=== PATIENT | female | born 1990 | race Caucasian/White ===

== ENCOUNTER 2020-10-05 08:05 | Inpatient (IN) ==
[2020-10-05] MEDS ORDERED: OXYTOCIN 30 UNITS/500 ML BAG IV PRN (08:31)
[2020-10-05 09:10] LABS: Hematocrit (blood only) 32.8 % (37-47); Hemoglobin 11.1 g/dL (12.0-16.0); Mean Corpuscular Hemoglobin 28.8 pg (25-34); Mean Corpuscular Hgb Conc 33.8 g/dL (32-36); Mean Corpuscular Volume 85.2 fL (80-100); Mean Platelet Volume 9.2 fL (7.4-10.4); Platelet Count 219 K/uL (130-400); RDW Coefficient of Variation 12.8 % (11.5-14.5); RDW Standard Deviation 39.8 fL (36.4-46.3); Red Blood Count 3.85 M/uL (4.2-5.4)
--- NOTE | 2020-10-05 09:12 | History & Physical Report ---
Date of Service October 05, 2020 Assessment & Plan (1) with 41 completed weeks gestation: (2) Encounter for induction of labor: Plan: admit for induction. discussed options--arom only, arom+pit same time, pit then arom when in good contraction pattern. She really wants an epidural, her last labor so would like to get that first then will be good with arom and pit concurrently. fetus category one. Spoke with [facility] and confirmed that she is on subutex 8 mg 1.5 tabs SL daily, confirmed it can be taken in 4 divided doses. She has taken 3mg this am. Will clear with anesthesia. Admission and Anticipated Discharge Date Admission Date: October 05, 2020 History of Present Illness Chief Complaint: induction Primary Care Provider: Jamar Zapata DO Patient is a 30yowf with iup at 41 weeks who presents for postdates induction. Patient was a noelle from [place]. She left that practice at about 20 weeks but did not present to us until 35 weeks. She has a hx of opiod abuse and is currently on subutex. She takes 12 mg daily but divides this into several small doses. At first ob had +urine tox for ativan/xanax but no scripts for those meds on PDMP. She had a neg tox 09/20. complicated by poor care. Was unable to come to the office yesterday because of transportation issues. Notes a rare contractions. Some pressure and vaginal itching. no vb. +fm. Allergies Allergy/AdvReac Type Severity Reaction Status Date / Time No Known Allergies Allergy Verified 09/28/20 14:20 Home Medications Medication Instructions Recorded Confirmed Type buprenorphine HCl 8 mg sublingual 12 mg SUBLINGUAL DAILY tab 08/25/20 10/05/20 History tablet pediatric multivitamin no.76 2 tab PO DAILY tab 08/25/20 10/05/20 History (Flintstones Complete) Patient History Medical History ADHD Anxiety Asthma [facility]. Surgical History No pertinent past surgical history Family History Grandmother Bjhzy-9-slygwplqyaq deficiency Depression Lung disease Mother Anxiety Hypertension Kidney stones Grandfather Heart disease Gallbladder disease Hypertension Other Diabetes Denies family history of Ovarian cancer Prostate cancer Myocardial infarction Breast cancer Colorectal cancer Social History Smoking Status: Current every day smoker packs per day: 0.25; Cigarettes Per Day: 10; Second Hand Exposure: Yes; Do You Dip or Chew Tobacco: No; Hx Alcohol Use: No Hx Substance Use: No Preferred Language: Vietnamese Communication Ability: Effective Visual Impairment: No Limitations Hearing Ability: Normal 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 Beliefs That Will Affect Care: None marital status: marital status details: Duncan(29) [phone] Current Living Situation: Spouse Current Living Situation Comment: lives with spouse and 2 kids current occupational status: employed current occupation: [employer] Other Information That Helps Us Care for You: No Feels Safe at Home: Yes Safety Concerns: Feels Safe At This Time caffeine: Yes Dental Care, Regularly: Yes Physical Activity Frequency: Does not Exercise Seatbelt Use: always Sunscreen Use: Yes Assistive Devices: None OB History g1--2012, sab g2--02/15, 39 weeks., , 7# g3--12/19--39 weeks, , 6#14oz [employer] History noncontributory Review of Systems All systems reviewed & are unremarkable except as noted in HPI & below Physical Exam Constitutional: WD/WN, vitals as above Gastrointestinal (Abdomen): soft, gravid, nt Psychiatric: A+Ox3, euthymic affect Genitourinary: cx--3/50/-2/soft/mid toco--intermittent contraction efm--130s with mod variability, accels to 150s, no decels Results & Data ([facility]) Vital Signs (Past 12 Hours) Vital Signs Temp Pulse Resp BP 10/05/20 08:30 36.6 C 20 10/05/20 08:15 99 H 112/66 Code Status & VTE Plan VTE Prophylaxis Plan VTE Prophylaxis will be ordered: No Coding Level of Care Code None Diagnoses with 41 completed weeks gestation Z3A.41 Encounter for induction of labor Z34.90
[2020-10-05] MEDS: LACTATED RINGER'S 1,000 ML IV PRN ×3 (09:25→16:58)
[2020-10-05] MEDS ORDERED: fentaNYL citrate 100 MCG/2 ML VIAL ONE (09:53)
[2020-10-05] MEDS ORDERED: SODIUM CHLORIDE 0.9% INJ 10 ML VIAL ONE (09:53)
[2020-10-05] MEDS ORDERED: BUPIVACAINE 0.25% 30 ML VIAL ONE (09:53)
[2020-10-05] MEDS ORDERED: ePHEDrine sulfate 50 MG/ML AMP ONE (09:53)
[2020-10-05] MEDS ORDERED: fentaNYL 2MCG/ML ROPIVACAINE 1.25MG/ML 100 ML BAG EPI ONE (09:54)
[2020-10-05] MEDS: OXYTOCIN 30 UNITS/500 ML BAG IV PRN ×2 (10:18→19:31)
[2020-10-05 11:47] LABS: Amphetamines+Metham, Urine Neg (Neg); Barbiturates, Urine Neg (Neg); Benzodiazepine, Urine Neg (Neg); Cocaine, Urine Neg (Neg); MDMA (Ecstacy), Urine Neg (Neg); Methadone, Urine Neg (Neg); Opiate, Urine Neg (Neg); Phencyclidine, Urine Neg (Neg)
--- NOTE | 2020-10-05 11:50 | Anesthesiology Consultation ---
Date of Service October 05, 2020 Assessment & Plan Chart Review Chart Review: Acceptable Risk for Labor Epidural Consults Requested none History Height/Weight Height: 5 ft 1 in Weight: 69.853 kg Allergies Allergy/AdvReac Type Severity Reaction Status Date / Time No Known Allergies Allergy Verified 09/28/20 14:20 Medications Home Medications Medication Instructions Recorded Confirmed Last Taken buprenorphine HCl 8 mg sublingual 12 mg SUBLINGUAL DAILY tab 08/25/20 10/05/20 10/05/20 tablet pediatric multivitamin no.76 2 tab PO DAILY tab 08/25/20 10/05/20 10/05/20 (Flintstones Complete) Active Medications Generic Name Dose Route Start Last Admin Trade Name Freq PRN Reason Stop Dose Admin Oxytocin 30 units in 500 mls @ 2 mls/hr 10/05/20 08:32 10/05/20 10:18 Pitocin IV 10/07/20 08:31 0.12 units/hr .Q24H PRN 2 mls/hr Labor Induction/Augmentation Administration Protocol 0.12 UNITS/HR Lactated Ringer's 1,000 mls @ 125 mls/hr 10/05/20 08:31 10/05/20 10:20 Lr IV 10/07/20 08:30 125 mls/hr .Q8H PRN Administration L&D Protocol Protocol Past Medical History Medical History ADHD Anxiety Asthma Hx of opioid abuse on subutex, [facility]. been clean for 2 1/2 years. Past Family History Family History Grandmother Xdjeh-9-rcubqzlkxgt deficiency Depression Lung disease Mother Anxiety Hypertension Kidney stones Grandfather Heart disease Gallbladder disease Hypertension Other Diabetes Denies family history of Ovarian cancer Prostate cancer Myocardial infarction Breast cancer Colorectal cancer Past Surgical History Surgical History No pertinent past surgical history Social History Smoking Status: Current every day smoker tobacco type: cigarettes Smoking cigarettes per day: 10 Do You Dip or Chew Tobacco: No Hx Alcohol Use: No Hx Substance Use: No substance use type: does not use Physical Exam Vital Signs Last Vital Signs Temp 36.6 C 10/05/20 08:30 Pulse 82 10/05/20 11:47 Resp 20 10/05/20 11:00 BP 126/66 10/05/20 11:47 Pulse Ox 98 10/05/20 11:45 Testing Laboratory Results 10/05/20 08:59
[2020-10-05] MEDS ORDERED: diphenhydrAMINE 50 MG/ML VIAL IV PRN (11:54)
[2020-10-05] MEDS ORDERED: ePHEDrine sulfate 50 MG/ML AMP IV PRN (11:54)
[2020-10-05] MEDS ORDERED: NALOXONE HCL 1 MG in SODIUM CHLORIDE 0.9% 1000ML 1,000 ML IV PRN (11:54)
[2020-10-05] MEDS ORDERED: fentaNYL 2MCG/ML ROPIVACAINE 1.25MG/ML 100 ML BAG EPI PRN (11:54)
[2020-10-05] MEDS ORDERED: NALBUPHINE HCL INJ 10 MG/ML AMP IV PRN (11:54)
[2020-10-05] MEDS ORDERED: NALOXONE HCL 0.4 MG/1 ML VIAL/CARP IV PRN (11:54)
--- NOTE | 2020-10-05 13:00 | Labor Progress Brief Note ---
Date of Service October 05, 2020 Subjective comfortable with epidural Assessment & Plan (1) Encounter for induction of labor: Plan: continue current management. fetus category one. anticipate Admission and Anticipated Discharge Date Admission Date: October 05, 2020 Physical Exam Physical Exam: cx--//-2 arom--clear toco--q 4-6 weeks efm--110s with mod variability, small accels, no decels Results & Data ([facility]) Vital Signs (Past 12 Hours) Vital Signs Temp Pulse Resp BP Pulse Ox 10/05/20 12:55 102 H 98 10/05/20 12:54 76 112/67 10/05/20 12:50 73 98 10/05/20 12:49 69 111/66 10/05/20 12:45 77 97 10/05/20 12:44 75 116/65 10/05/20 12:40 81 98 10/05/20 12:39 70 113/64 10/05/20 12:35 75 99 10/05/20 12:34 86 115/65 10/05/20 12:30 72 98 10/05/20 12:29 75 122/70 10/05/20 12:25 70 99 10/05/20 12:24 90 123/78 10/05/20 12:20 88 122/66 98 10/05/20 12:15 87 97 10/05/20 12:13 78 115/67 10/05/20 12:10 105 H 105/60 98 10/05/20 12:05 69 98 10/05/20 12:04 80 123/68 10/05/20 12:00 36.6 C 87 20 122/66 98 10/05/20 11:55 93 H 98 10/05/20 11:53 91 H 112/68 10/05/20 11:51 76 107/64 10/05/20 11:50 75 99 10/05/20 11:49 75 124/70 10/05/20 11:47 82 126/66 10/05/20 11:45 84 122/62 98 10/05/20 11:43 89 131/67 10/05/20 11:41 91 H 124/65 10/05/20 11:40 86 98 10/05/20 11:39 82 121/65 10/05/20 11:37 82 118/67 10/05/20 11:35 99 H 121/65 98 10/05/20 11:33 86 118/63 10/05/20 11:31 96 H 125/70 10/05/20 11:30 88 98 10/05/20 11:29 90 119/72 10/05/20 11:27 94 H 114/68 10/05/20 11:25 89 126/81 97 10/05/20 11:23 86 125/83 10/05/20 11:21 84 120/78 10/05/20 11:20 79 100 10/05/20 11:16 79 118/74 10/05/20 11:15 90 99 10/05/20 11:06 80 125/81 10/05/20 11:00 20 10/05/20 10:46 72 112/70 10/05/20 10:30 18 10/05/20 10:16 78 113/67 10/05/20 10:00 18 10/05/20 09:35 18 10/05/20 08:30 36.6 C 20 10/05/20 08:15 99 H 112/66 Coding Level of Care Code None Diagnoses Encounter for induction of labor Z34.90
[2020-10-05] MEDS: CALCIUM CARBONATE 500 MG CHEWABLE TAB PO PRN ×2 (13:32→17:21)
--- NOTE | 2020-10-05 17:14 | Labor Progress Brief Note ---
Date of Service October 05, 2020 Subjective comfortable with epidural Assessment & Plan (1) Encounter for induction of labor: Plan: continue current management. fetus category one. anticipate Admission and Anticipated Discharge Date Admission Date: October 05, 2020 Physical Exam Physical Exam: cx--/-2 toco--q 2-3 efm--120s with mod variability, small accels, no decels Constitutional: WD/WN, vitals as above Psychiatric: A+Ox3, euthymic affect Results & Data ([facility]) Vital Signs (Past 12 Hours) Vital Signs Temp Pulse Resp BP Pulse Ox 10/05/20 17:10 79 99 10/05/20 17:09 77 103/60 10/05/20 17:05 88 98 10/05/20 17:00 72 18 98 10/05/20 16:59 72 107/53 L 10/05/20 16:55 83 98 10/05/20 16:50 111 H 98 10/05/20 16:49 93 H 107/59 L 10/05/20 16:45 79 96 10/05/20 16:40 71 97 10/05/20 16:39 81 106/58 L 10/05/20 16:35 71 95 10/05/20 16:30 81 18 95 10/05/20 16:29 74 105/55 L 10/05/20 16:25 79 95 10/05/20 16:20 76 96 10/05/20 16:19 77 108/59 L 10/05/20 16:15 79 97 10/05/20 16:10 76 97 10/05/20 16:09 75 111/61 10/05/20 16:05 93 H 96 10/05/20 16:00 74 18 96 10/05/20 15:59 84 104/59 L 10/05/20 15:55 75 96 10/05/20 15:50 80 97 10/05/20 15:49 69 108/59 L 10/05/20 15:45 75 97 10/05/20 15:40 77 97 10/05/20 15:39 79 108/62 10/05/20 15:35 77 97 10/05/20 15:30 93 H 18 97 10/05/20 15:29 75 103/58 L 10/05/20 15:25 72 96 10/05/20 15:20 76 104/58 L 96 10/05/20 15:15 87 98 10/05/20 15:10 79 114/55 L 97 10/05/20 15:05 36.7 C 75 98 10/05/20 15:00 77 98 10/05/20 14:59 68 111/59 L 10/05/20 14:55 76 96 10/05/20 14:50 66 97 10/05/20 14:49 68 106/56 L 10/05/20 14:45 74 97 10/05/20 14:40 81 97 10/05/20 14:35 71 96 10/05/20 14:30 36.7 C 80 20 97 10/05/20 14:29 74 105/60 10/05/20 14:25 81 96 10/05/20 14:20 67 108/58 L 97 10/05/20 14:15 68 96 10/05/20 14:10 68 97 10/05/20 14:09 75 107/55 L 10/05/20 14:05 68 96 10/05/20 14:00 67 103/57 L 98 10/05/20 13:55 74 97 10/05/20 13:50 69 97 10/05/20 13:49 72 108/60 10/05/20 13:45 70 96 10/05/20 13:40 71 97 10/05/20 13:39 73 110/64 10/05/20 13:35 68 98 10/05/20 13:30 71 20 116/64 97 10/05/20 13:25 75 98 10/05/20 13:20 77 98 10/05/20 13:19 77 114/68 10/05/20 13:15 74 98 10/05/20 13:10 83 99 10/05/20 13:09 75 116/66 10/05/20 13:05 77 99 10/05/20 13:00 78 18 99 10/05/20 12:55 102 H 98 10/05/20 12:54 76 112/67 10/05/20 12:50 73 98 10/05/20 12:49 69 111/66 10/05/20 12:45 77 97 10/05/20 12:44 75 116/65 10/05/20 12:40 81 98 10/05/20 12:39 70 113/64 08/03/21 12:35 75 99 10/05/20 12:34 86 115/65 10/05/20 12:30 72 18 98 10/05/20 12:29 75 122/70 10/05/20 12:25 70 99 10/05/20 12:24 90 123/78 10/05/20 12:20 88 122/66 98 10/05/20 12:15 87 97 10/05/20 12:13 78 115/67 10/05/20 12:10 105 H 105/60 98 10/05/20 12:05 69 98 10/05/20 12:04 80 123/68 10/05/20 12:00 36.6 C 87 20 122/66 98 10/05/20 11:55 93 H 98 10/05/20 11:53 91 H 112/68 10/05/20 11:51 76 107/64 10/05/20 11:50 75 99 10/05/20 11:49 75 124/70 10/05/20 11:47 82 126/66 10/05/20 11:45 84 122/62 98 10/05/20 11:43 89 131/67 10/05/20 11:41 91 H 124/65 10/05/20 11:40 86 98 10/05/20 11:39 82 121/65 10/05/20 11:37 82 118/67 10/05/20 11:35 99 H 121/65 98 10/05/20 11:33 86 118/63 10/05/20 11:31 96 H 125/70 10/05/20 11:30 88 98 10/05/20 11:29 90 119/72 10/05/20 11:27 94 H 114/68 10/05/20 11:25 89 126/81 97 10/05/20 11:23 86 125/83 10/05/20 11:21 84 120/78 10/05/20 11:20 79 100 10/05/20 11:16 79 118/74 10/05/20 11:15 90 99 10/05/20 11:06 80 125/81 10/05/20 11:00 20 10/05/20 10:46 72 112/70 10/05/20 10:30 18 10/05/20 10:16 78 113/67 10/05/20 10:00 18 10/05/20 09:35 18 10/05/20 08:30 36.6 C 20 10/05/20 08:15 99 H 112/66 Coding Level of Care Code None Diagnoses Encounter for induction of labor Z34.90
[2020-10-05] MEDS ORDERED: ERYTHROMYCIN OP OINT 1 GM PKT ONE (19:02)
[2020-10-05] MEDS ORDERED: ACETAMINOPHEN 325 MG TAB PO PRN (19:08)
[2020-10-05] MEDS ORDERED: IBUPROFEN 600 MG TAB PO PRN (19:08)
--- NOTE | 2020-10-05 19:12 | Delivery Summary ---
Vaginal Delivery Summary Date of Service October 05, 2020 Pre-operative Diagnosis: at 41 weeks drug maintenance with subutex Post-operative Diagnosis: same Procedure: pitocin induction epidural arom right labial laceration and repair EBL: 300cc Anesthesia: epidural Procedure: The patient presented for postdates induction. Underwent pitocin induction, epidural and arom for clear fluid. The patient pushed for one contractions to deliver a viable female in concepcion position. The nose and mouth were bulb suctioned on the perineum and the rest of the was then delivered without difficulty. The baby was vigorous. The nose and mouth were again bulb suctioned and the infant was placed in the maternal abdomen for drying and attention. Cord was clamped and cut at one minute of life. Cord blood and segment obtained. Placenta delivered spontaneous, intact with a three vessel cord. Cervix/sulci/rectum were intact. A small right labial degree laceration was repaired in the normal standard fashion. Hemostasis obtained with dilute pitocin and fundal massage. Apgars were 9/10. Mother and baby doing well at the end of the delivery. Vaginal Delivery Summary and 1st Degree LAC [facility] [place] Vaginal Delivery Charge Vaginal Delivery Codes: 47397 global code for the antepartum, delivery, and post- Delivery Type Details: and 1st Degree LAC
[2020-10-05] MEDS ORDERED: buprenorphine HCL 2 MG SUBL SL STA (19:28)
[2020-10-05] MEDS ORDERED: bisacodyL 10 MG SUPP PR PRN (19:29)
[2020-10-05] MEDS ORDERED: SUPERCREAM 0.870% 15 GM JAR EXT PRN (19:29)
[2020-10-05] MEDS ORDERED: HYDROCORTISONE ACETATE 25 MG SUPP PR PRN (19:29)
[2020-10-05] MEDS ORDERED: BENZOCAINE 20% AER SPR 82.5 GM CAN EXT PRN (19:29)
--- NOTE | 2020-10-05 19:51 | Anesthesia Procedure Note ---
Date of Service October 05, 2020 Anesthesia Post Epidural Note Vital Signs Vital Signs: Temp Pulse Resp BP Pulse Ox 36.7 C 86 18 116/71 97 10/05/20 17:10 10/05/20 19:38 10/05/20 19:23 10/05/20 19:38 10/05/20 19:10 Pain Intensity Bilateral Lower Abdomen: Pain Intensity: 2 Notes Mental Status: alert / awake / arousable Nausea / Vomiting: adequately controlled Pain: adequately controlled Airway Patency, RR, SpO2: stable & adequate BP & HR: stable & adequate Hydration State: stable & adequate Neuraxial Anesthesia: was administered and sensory block is resolving Anesthetic Complications: no major complications apparent and Pt Satisfied with anesthetic care Epidural: Removed without complications and With tip intact
[2020-10-05] MEDS: buprenorphine HCL 2 MG SUBL SL SCH (22:20)
[2020-10-05] MEDS: DOCUSATE SODIUM 100 MG CAP PO SCH (22:21)
[2020-10-05] MEDS ORDERED: buprenorphine HCL 2 MG SUBL SL ONE (22:42)
--- NOTE | 2020-10-06 06:50 | Obstetrical Progress Note ---
Date of Service <Chrissy Aguayo DO - Last Filed: 10/06/20 07:05> October 06, 2020 Assessment & Plan <Chrissy Aguayo DO - Last Filed: 10/06/20 07:05> (1) Encounter for care and examination after delivery: 30 yo post op day1 from [facility], doing well. -Continue routine post care. -vital signs reviewed and WNL (Tmax 36.7) -Blood Type O+, GBS- -Encourage ambulation, monitor and control pain with Motrin, Percocet PRN, resume regular diet, monitor lochia -encourage breast feeding -hemoglobin 11.1 (8/3) -social services director consulted, mother understands baby will be monitored for abstinence syndrome Day #:: 1 <Kelley Hyman MD, FACOG - Last Filed: 10/06/20 07:50> (1) Encounter for care and examination after delivery: Subjective <Chrissy Aguayo DO - Last Filed: 10/06/20 07:05> Ambulation: ambulating normally Voiding: no voiding problems Passing Gas:: Yes (no stool yet) Diet Tolerance:: regular diet Lochia:: Moderate Feeding Type:: breast feeding Current Pain Level(1-10): 2 (well controlled on medication) Review of Systems Denies fever, chills, sweats Denies shortness of breath, difficulty breathing, chest pain, palpitations, chest pressure. Denies breast pain. Denies dysuria. Denies headache or changes in vision. Physical Exam <DO Juice Chavez Last Filed: 10/06/20 07:05> General: Alert, oriented. No acute distress. Cardiac: Regular rate and rhythm, no murmurs/rubs/gallops. Respiratory: Clear to auscultation bilaterally a/p, no wheezes/rales/rhonchi. No increased work of breathing. Symmetrical chest rise. No respiratory distress. Abdomen: Soft, nontender, nondistended. Bowel sounds present. Uterus: Uterine fundus firm, palpable at umbilicus. Lower Extremities: No lower extremity edema or swelling. No deep calf pain. Alfred's negative bilaterally.. Results & Data ([facility]) <Chrissy Aguayo DO - Last Filed: 10/06/20 07:05> Vital Signs (Past 12 Hours) Vital Signs Temp Pulse Pulse Resp BP BP Pulse Ox 10/06/20 03:45 36.7 C 73 16 106/70 98 10/05/20 23:06 36.9 C 71 16 108/64 96 10/05/20 22:16 36.8 C 78 18 110/69 98 10/05/20 21:08 90 18 124/63 10/05/20 20:53 78 133/70 10/05/20 20:39 76 18 126/71 10/05/20 20:24 81 135/72 10/05/20 20:09 86 18 93/72 L 10/05/20 20:03 94 H 130/70 10/05/20 19:53 18 10/05/20 19:38 86 18 116/71 10/05/20 19:23 83 18 121/75 10/05/20 19:10 88 97 10/05/20 19:09 95 H 18 120/88 10/05/20 19:08 90 84 L 10/05/20 19:05 89 100 10/05/20 19:00 87 99 10/05/20 18:59 100 H 99/65 L 10/05/20 18:57 18 10/05/20 18:56 88 83 L 10/05/20 18:55 88 94 10/05/20 18:50 82 100 10/05/20 18:49 81 110/62 Laboratory Results 10/05/20 10/05/20 10/05/20 Range/Units 10:56 09:17 09:17 WBC (4.8-10.8) K/uL RBC (4.2-5.4) M/uL Hgb (12.0-16.0) g/dL Hct (37-47) % MCV (80-100) fL MCH (25-34) pg MCHC (32-36) g/dL RDW Std Deviation (36.4-46.3) fL RDW Coeff of Johanne (11.5-14.5) % Plt Count (130-400) K/uL MPV (7.4-10.4) fL Urine Opiates Screen Neg (Neg) Ur Methadone, Qual Neg (Neg) Urine Barbiturates Neg (Neg) Ur Phencyclidine (PCP) Neg (Neg) U Amphetamin/Meth Scrn Neg (Neg) MDMA (Ecstasy) Screen Neg (Neg) U Benzodiazepines Scrn Neg (Neg) Ur Cocaine Metabolite Neg (Neg) U Marijuana (THC) Screen Neg (Neg) COVID[facility]19 [facility] SARS-CoV-2, RNA, NAAT NEGATIVE (NEGATIVE) 10/05/20 Range/Units 08:59 WBC 8.60 (4.8-10.8) K/uL RBC 3.85 L (4.2-5.4) M/uL Hgb 11.1 L (12.0-16.0) g/dL Hct 32.8 L (37-47) % MCV 85.2 (80-100) fL MCH 28.8 (25-34) pg MCHC 33.8 (32-36) g/dL RDW Std Deviation 39.8 (36.4-46.3) fL RDW Coeff of Johanne 12.8 (11.5-14.5) % Plt Count 219 (130-400) K/uL MPV 9.2 (7.4-10.4) fL Urine Opiates Screen (Neg) Ur Methadone, Qual (Neg) Urine Barbiturates (Neg) Ur Phencyclidine (PCP) (Neg) U Amphetamin/Meth Scrn (Neg) MDMA (Ecstasy) Screen (Neg) U Benzodiazepines Scrn (Neg) Ur Cocaine Metabolite (Neg) U Marijuana (THC) Screen (Neg) COVID-19 Eval Order SARS-CoV-2, RNA, NAAT (NEGATIVE) Medications Administered Current Inpatient Medications Acetaminophen (Acetaminophen 325 Mg Tab) 650 mg PO Q6H PRN PRN Reason: Pain/NAVARRO/Fever Stop: 11/04/20 19:07 Benzocaine (Benzocaine 20% Aer Spr 82.5 Gm Can) 1 appln EXT PRN PRN PRN Reason: Perineal Discomfort Stop: 11/04/20 19:28 Last Admin: 10/05/20 22:12 Dose: 1 appln Documented by: Bisacodyl (Bisacodyl 5 Mg Tabec) 5 mg PO 1999 SEBAS Stop: 10/06/20 20:01 Bisacodyl (Bisacodyl 10 Mg Supp) 10 mg AL DAILY PRN PRN Reason: No BM on 2nd post- day Stop: 11/04/20 19:28 Buprenorphine HCl (Buprenorphine Hcl 2 Mg Subl) 3 mg SL QID SEBAS Stop: 11/04/20 20:59 Last Admin: 10/05/20 22:20 Dose: Not Given Documented by: Calcium Carbonate (Calcium Carbonate 500 Mg Chewable Tab) 500 mg PO Q4 PRN PRN Reason: Indigestion Stop: 11/04/20 13:16 Last Admin: 10/05/20 17:21 Dose: 500 mg Documented by: Cocaine HCl (Supercream 0.870% 15 Gm Jar) 1 gm EXT BID PRN PRN Reason: Hemorrhoidal Inflammation Stop: 10/19/20 19:28 Last Admin: 10/05/20 22:24 Dose: 1 appln Documented by: Diphenhydramine HCl (Diphenhydramine 50 Mg/Ml Vial) 25 mg IV Q6H PRN PRN Reason: Itching Stop: 10/06/20 11:53 Docusate Sodium (Docusate Sodium 100 Mg Cap) 100 mg PO DAILY@ [facility] Stop: 11/04/20 20:59 Last Admin: 10/05/20 22:21 Dose: Not Given Documented by: Ephedrine Sulfate (Ephedrine Sulfate 50 Mg/Ml Amp) 10 mg IV Q5M PRN PRN Reason: Hypotension Stop: 10/06/20 11:53 Hydrocortisone (Hydrocortisone Acetate 25 Mg Supp) 25 mg AL BID PRN PRN Reason: Hemorrhoidal Inflammation Stop: 11/04/20 19:28 Oxytocin (Pitocin) 30 units in 500 mls @ 333.333 mls/hr IV .Q1H30M PRN; Protocol PRN Reason: Bleeding Control Stop: 11/04/20 08:30 Oxytocin (Pitocin) 30 units in 500 mls @ 333.333 mls/hr IV .Q1H30M PRN; Protocol PRN Reason: Labor Induction/Augmentation Stop: 10/07/20 08:31 Last Titration: 10/05/20 21:00 Dose: Infused Documented by: Lactated Ringer's (Lr) 1,000 mls @ 125 mls/hr IV .Q8H PRN; Protocol PRN Reason: L&D Protocol Stop: 10/07/20 08:30 Last Infusion: 10/05/20 19:30 Dose: Infused Documented by: Naloxone HCl 1 mg/ Sodium (Chloride) 1,002.5 mls @ 50 mls/hr IV .Q20H3M PRN PRN Reason: itching or nausea Stop: 10/06/20 11:53 Ibuprofen (Ibuprofen 600 Mg Tab) 600 mg PO Q4H PRN PRN Reason: Pain/NAVARRO/Cramping/Fever Stop: 11/04/20 19:07 Nalbuphine HCl (Nalbuphine Hcl Inj 10 Mg/Ml Amp) 5 mg IV Q10M PRN PRN Reason: itching or nausea Stop: 10/06/20 11:53 Naloxone HCl (Naloxone Hcl 0.4 Mg/1 Ml Vial/Carp) 0.1 mg IV UD PRN PRN Reason: Respiratory Depression Stop: 10/06/20 11:53 Prenat Multivit/Rack Room Worker/Iron/Folic Ac ( Vitamin 1 Tab) 1 tab PO DAILY@08 SEBAS Stop: 11/05/20 07:59 Ropivacaine (Fentanyl 2mcg/Ml Ropivacaine 1.25mg/Ml 100 Ml Bag) 100 ml EPI PRN PRN; Protocol PRN Reason: Pain R/T Labor Stop: 10/06/20 11:53 <Kelley Hyman MD, FACOG - Last Filed: 10/06/20 07:50> Co-Signing Physician Notes Resident Physician Supervision Note: I interviewed and examined the patient. Discussed with Dr. Aguayo and agree with findings and plan as documented in the note. Any exceptions or clarifications are listed here: please see my note. Documented By: Kelley Hyman MD, FACOG Resident Activity Tracking <Chrissy Aguayo DO - Last Filed: 10/06/20 07:05> Resident Involvement: Resident Care Provided Care Provided: OB Delivery
--- NOTE | 2020-10-06 07:06 | Obstetrical Progress Note ---
Date of Service October 06, 2020 Assessment & Plan (1) Vaginal delivery: (2) Abstinent from drug misuse on maintenance replacement: Plan routine pp care. Will have SS consult today. Explained the baby will stay longer to observe for CHAIM, she expresses understanding. Subjective Ambulation: ambulating normally Voiding: no voiding problems Passing Gas:: Yes Diet Tolerance:: regular diet Lochia:: Small Feeding Type:: breast feeding Patient feels well this am, no complaints. Physical Exam Constitutional WD/WN, vitals as above Respiratory normal respiratory effort, lungs clear to auscultation Cardiovascular RRR, no murmur, no edema Extremities: no calf tenderness and no edema Gastrointestinal (Abdomen) soft, nt, nd ff/nt at u Results & Data ([facility]) Vital Signs (Past 12 Hours) Vital Signs Temp Pulse Pulse Resp BP BP Pulse Ox 10/06/20 03:45 36.7 C 73 16 106/70 98 10/05/20 23:06 36.9 C 71 16 108/64 96 10/05/20 22:16 36.8 C 78 18 110/69 98 10/05/20 21:08 90 18 124/63 10/05/20 20:53 78 133/70 10/05/20 20:39 76 18 126/71 10/05/20 20:24 81 135/72 10/05/20 20:09 86 18 93/72 L 10/05/20 20:03 94 H 130/70 10/05/20 19:53 18 10/05/20 19:38 86 18 116/71 10/05/20 19:23 83 18 121/75 10/05/20 19:10 88 97 10/05/20 19:09 95 H 18 120/88 10/05/20 19:08 90 84 L 10/05/20 19:05 89 100
[2020-10-06 08:33] LABS: Hematocrit (blood only) 29.3 % (37-47); Hemoglobin 9.7 g/dL (12.0-16.0)
[2020-10-06] MEDS: PRENATAL VITAMIN 1 TAB PO SCH (08:44)
[2020-10-06] MEDS: buprenorphine HCL 2 MG SUBL SL SCH ×4 (08:44→20:57)
[2020-10-06] MEDS: DOCUSATE SODIUM 100 MG CAP PO SCH ×2 (08:44→20:56)
[2020-10-06] MEDS ORDERED: NICOTINE 14 MG/24 HR PATCH TD SCH (14:30)
[2020-10-06] MEDS ORDERED: bisacodyL 5 MG TABEC PO SCH (20:00)
--- NOTE | 2020-10-07 07:37 | Obstetrical Progress Note ---
Date of Service October 07, 2020 Assessment & Plan (1) Encounter for care and examination after delivery: Day 2 s/p . Doing well. Stable for discharge Subjective Ambulation: ambulating normally Voiding: no voiding problems Passing Gas:: Yes Diet Tolerance:: regular diet Lochia:: Moderate Feeding Type:: breast feeding Physical Exam Constitutional WD/WN, vitals as above Respiratory normal respiratory effort; no respiratory distress and no labored breathing Gastrointestinal (Abdomen) Inspection/Auscultation: abdomen normal to inspection; abdomen not distended Percussion/Palpation: abdomen soft; abdomen nontender, no guarding and abdomen not rigid Genitourinary OB Exam Abdomen: + fundal height Fundus: + firm and + relation to umbilicus (Below); not tender or not boggy Results & Data ([facility]) Vital Signs (Past 12 Hours) Vital Signs Temp Pulse Resp BP Pulse Ox 10/06/20 23:15 36.7 C 94 H 16 115/72 97
[2020-10-07] MEDS: DOCUSATE SODIUM 100 MG CAP PO SCH (08:36)
[2020-10-07] MEDS: PRENATAL VITAMIN 1 TAB PO SCH (08:36)
[2020-10-07 09:00] LABS: Hematocrit (blood only) 30.5 % (37-47)
[2020-10-07] MEDS: buprenorphine HCL 2 MG SUBL SL SCH (09:10)
== END 2020-10-07 09:53 | disposition home or self-care (01) | DRG 806 ==
LOC: 4S1 08:05 → 4S2 22:13